=== PATIENT | female | born 1940 | race Caucasian/White ===

== ENCOUNTER → 2017-07-03 14:55 | Outpatient (CLI) | payer MEDICARE, SELFPAY ==
--- NOTE | 2017-07-03 15:02 | DI.RAD.S_ITS ---
PROCEDURE: XR KNEE RT 3V INDICATIONS: right knee pain TECHNIQUE: 3 views of the knee were acquired. COMPARISON: None. FINDINGS: Bones: No fractures or dislocations. No suspicious bony lesions. There is mild to moderate tricompartmental knee joint degeneration, most pronounced at the patellofemoral joint. Soft tissues: Trace joint effusion. No suspicious soft tissue calcifications. IMPRESSION: Mild to moderate degenerative joint disease. Dictated by: Kam Sanders M.D. on 07/03/2017 at 17:59 Approved by: Kam Sanders M.D. on 07/03/2017 at 18:00
== END ==
PROVIDERS: PCP Family Medicine; Visit Provider Family Medicine
DX: M17.11 Unilateral primary osteoarthritis, right knee (principal)
CPT/HCPCS: 73562

== ENCOUNTER 2017-07-07 12:24 | Emergency (ER) | payer MEDICARE, SELFPAY ==
[2017-07-07 12:41] VITALS: BP 160/70; PULSE 64; RESP 16; TEMP 35.6; O2SAT 99; BMI 22.6
--- NOTE | 2017-07-07 12:46 | ED_ITS ---
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 She reports that yesterday she was stepping up while she was working in the garden felt a pop in her right knee. She denies any direct trauma to the right knee. She reports she is having difficulty ambulating due to pain in the right knee. She also reports having worsening pain with movement to the right knee. She denies any direct trauma to the right knee. She denies any other concerns or complaints. MD Complaint: extremity pain Related Data Home Medications Medication Instructions Recorded Confirmed CALCIUM/VITAMIN D (CALCIUM + D #0 11/21/10 07/03/17 500MG/125UNITS) [FISH OIL] QDAY #0 11/21/10 07/03/17 folic acid 1 mg PO QDAY #0 11/21/10 07/07/17 Previous Rx's Medication Instructions Recorded irbesartan 300 mg PO QDAY #90 tab 02/18/17 carvedilol [Coreg] 25 mg PO BID #180 tab 06/27/17 Allergies Allergy/AdvReac Type Severity Reaction Status Date / Time No Known Drug Allergies Allergy Verified 07/07/17 12:55 Review of Systems <AMIRAH Cisneros - Last Filed: 07/07/17 21:54> Constitutional Denies chills, Denies fever(s), Denies lethargy and Denies weakness Eyes Denies change in vision, Denies eye discharge, Denies irritation and Denies loss of vision ENT Ears, Nose, Mouth, and Throat: Denies change in voice, Denies neck pain and Denies sore throat Cardiovascular Denies chest pain, Denies irregular heart rhythm, Denies lightheadedness, Denies palpitations, Denies dyspnea, Denies dyspnea on exertion and Denies orthopnea Respiratory Denies cough, Denies dyspnea, Denies dyspnea on exertion and Denies wheezing Gastrointestinal Gastrointestinal: Denies abdominal pain, Denies change in bowel habits, Denies diarrhea, Denies nausea and Denies vomiting Genitourinary Denies hematuria, Denies flank pain, Denies urinary incontinence and Denies urinary urgency Musculoskeletal Denies neck pain Comments: Pain to right knee Integumentary/Breasts Denies pruritus, Denies erythema, Denies rash and Denies wounds Neurologic Denies loss of vision and Denies weakness Endocrine Denies palpitations Allergic/Immunologic Denies wheezing Exam <AMIRAH Cisneros - Last Filed: 07/07/17 21:54> Initial Vital Signs Initial Vital Signs: Vital Signs Temperature 96.1 F L 07/07/17 12:41 Pulse Rate 64 07/07/17 12:41 Respiratory Rate 16 07/07/17 12:41 Blood Pressure 160/70 H 07/07/17 12:41 Pulse Oximetry 99 07/07/17 12:41 Const General: cooperative and well developed Nutritional Appearance: well nourished Orientation: alert, awake, oriented x3 and not confused HENMT Mouth: oral mucosae normal, oropharynx normal and moist mucous membranes Eyes Sclera: sclerae normal Cornea: corneas normal Pupils: PERRL EOM: EOM intact bilaterally Resp Effort & Inspection: normal respiratory effort, able to speak in complete sentences, no respiratory distress and no use of accessory muscles Auscultation: clear to auscultation bilaterally, no rales, no rhonchi and no wheezes Cardio Rate: regular rate Rhythm: regular rhythm Heart Sounds: no click, no gallops, no murmurs and no rubs Skin General: no rashes or lesions noted, No jaundice and No petechiae Neuro General: alert, oriented x3 and gait normal Extrem Other: Right knee with no erythema swelling deformities or ecchymosis. Tenderness on palpation to the popliteal area of the right knee. Negative anterior posterior drawer sign. Negative varus and valgus stress test. Distal sensation is intact. Distal pulses are intact. Full range of motion distally. <Sonya Goode DO - Last Filed: 07/08/17 08:52> Initial Vital Signs Initial Vital Signs: Vital Signs Temperature 96.1 F L 07/07/17 12:41 Pulse Rate 64 07/07/17 12:41 Respiratory Rate 16 07/07/17 12:41 Blood Pressure 160/70 H 07/07/17 12:41 Pulse Oximetry 99 07/07/17 12:41 Course <AMIRAH Cisneros Last Filed: 07/07/17 21:54> Orders Ordered: Discontinued Medications Ibuprofen (Advil) 400 mg PO NOW ONE Stop: 07/07/17 13:26 Last Admin: 07/07/17 13:40 Dose: 400 mg Vital Signs - 8 hr 07/07/17 12:41 Temperature 96.1 F L Pulse Rate 64 Respiratory Rate 16 Blood Pressure 160/70 H Pulse Oximetry 99 <Sonya Goode DO - Last Filed: 07/08/17 08:52> Orders Ordered: Discontinued Medications Ibuprofen (Advil) 400 mg PO NOW ONE Stop: 07/07/17 13:26 Last Admin: 07/07/17 13:40 Dose: 400 mg Vital Signs - 8 hr 07/07/17 12:41 Temperature 96.1 F L Pulse Rate 64 Respiratory Rate 16 Blood Pressure 160/70 H Pulse Oximetry 99 MDM - Extremity (Nontraumatic) <AMIRAH Cisneros - Last Filed: 07/07/17 21:54> Imaging Data R knee: Radiologist's impression: PROCEDURE: XR KNEE RT 3V INDICATIONS: right knee pain TECHNIQUE: 3 views of the knee were acquired. COMPARISON: None. FINDINGS: Bones: No fractures or dislocations. No suspicious bony lesions. There is mild to moderate tricompartmental knee joint degeneration, most pronounced at the patellofemoral joint. Soft tissues: Trace joint effusion. No suspicious soft tissue calcifications. IMPRESSION: Mild to moderate degenerative joint disease. Dictated by: Kam Sanders M.D. on 07/03/2017 at 17:59 Approved by: Kam Sanders M.D. on 07/03/2017 at 18:00 [facility] Narrative Medical decision making narrative: X-ray the right knee was obtained was negative for any acute findings. X-ray does show degenerative changes. Discussed using knee immobilizer for comfort and support patient does not want knee immobilizer. Crutches for nonweightbearing or use wheelchair. Follow up with primary care provider later this week. If continued pain recommend obtain MRI to rule out soft tissue damage. [id number] ibuprofen as needed for any discomfort. For any worsening symptoms return to the emergency room. Discharge Plan Departure Patient Disposition: Home, Self-Care Clinical Impression: Right knee sprain Discharge Date/Time: 07/07/17 13:49 Interventions: ED Discharge Assessment Last Done: 07/07/17 13:48 Instructions: DI for Knee Pain Activity Restrictions/Additional Instructions: X-ray the right knee was obtained was negative for any acute findings. X-ray does show degenerative changes. Crutches for nonweightbearing or use wheelchair. Follow up with primary care provider later this week. If continued pain recommend obtain MRI to rule out soft tissue damage. Over-the- counter ibuprofen as needed for any discomfort. For any worsening symptoms return to the emergency room. Prescriptions: No Action folic acid 0.8 MG tablet 1 mg PO QDAY Qty: 0 RF: 0 CALCIUM/VITAMIN D (CALCIUM + D 500MG/125UNITS) Qty: 0 RF: 0 [FISH OIL] QDAY Qty: 0 RF: 0 irbesartan 300 MG tablet 300 mg PO QDAY Qty: 90 RF: 3 carvedilol [Coreg] 25 mg tablet 25 mg PO BID Qty: 180 RF: 1 Referrals: Hua Biswas MD [Primary Care Provider] - <Sonya Goode DO - Last Filed: 07/08/17 08:52> Cosign ED Attending Cosignature Attestation: I was immediately available in the department for consultation. Documentation has been reviewed. I agree with assessment and plan.
--- NOTE | 2017-07-07 13:02 | DI.RAD.S_ITS ---
PROCEDURE: XR KNEE RT 3V INDICATIONS: pain R knee TECHNIQUE: 3 views of the knee were acquired. COMPARISON: [facility], , XR KNEE RT 3V, 07/03/2017, 14:42. FINDINGS: Bones: No fractures or dislocation. The joint spaces appear preserved. There is minimal osteophytosis. Soft tissues: No joint effusion. No suspicious soft tissue calcifications. IMPRESSION: 1. No acute bony abnormality. Dictated by: Elio Holt M.D. on 07/07/2017 at 13:30 Approved by: Elio Holt M.D. on 07/07/2017 at 13:31
[2017-07-07] MEDS: IBUPROFEN 400 MG TABLET PO (13:40)
== END 2017-07-07 13:49 | disposition home or self-care (01) ==
PROVIDERS: Emergency Provider Nurse Practitioner Family; PCP Family Medicine
DX: S83.91XA Sprain of unspecified site of right knee, initial encounter (principal)
CPT/HCPCS: 73562; 99282; 99283

== ENCOUNTER → 2018-08-07 09:00 | Outpatient (CLI) | payer MEDICARE, SELFPAY ==
[2018-08-07 09:28] LABS: Add Manual Diff / Slide Review NO; Basophils Absolute Auto 0 /uL (0-100); Basophils Percent Auto 0.9 % (0-2); Eosinophils Absolute Auto 100 /uL (0-450); Eosinophils Percent Auto 2.8 % (2-4); Hematocrit 40.3 % (36-46); Hemoglobin 13.8 g/dL (12.0-16.0); Lymphocytes Absolute Auto 1500 /uL (1100-4500); Lymphocytes Percent Auto 29.2 % (25-40); Mean Corpuscular HGB Conc 34.3 % (30-36); Mean Corpuscular Hemoglobin 30.2 PG (26-34); Monocytes Absolute Auto 500 /uL (0-900); Monocytes Percent Auto 9.6 % (3-14); Neutrophils Absolute Auto 2900 /uL (1500-7000); Neutrophils Percent Auto 57.5 % (50-75); Platelet Count 199 X10^3/uL (150-400); Red Blood Cell Count 4.58 X10^6/uL (4.0-5.2); Red Cell Distribution Width 13.1 % (11.6-14.8); White Blood Cell Count 5.1 X10^3/uL (4.5-11.0)
[2018-08-07 09:50] LABS: Alanine Aminotransferase 21 IU/L (9-52); Albumin 4.5 g/dL (3.5-5.0); Albumin Globulin Ratio 1.6 (1.0-2.8); Alkaline Phosphatase 82 U/L (38-126); Aspartate Aminotransferase 24 IU/L (14-36); Bilirubin Total 0.5 mg/dL (0.2-1.3); Blood Urea Nitrogen 15 mg/dL (7-17); Calcium 9.1 mg/dL (8.4-10.2); Carbon Dioxide 29 mmol/L (22-32); Chloride 106 mmol/L (98-107); Cholesterol 211 mg/dL (140-199); Estimated Glomerular Filt Rate > 60.0 mL/min (>60); Globulin 2.9 g/dL (1.7-4.1); Glucose 97 mg/dL (80-110); HDL Cholesterol 48 mg/dL (40-60); HEMOLYSIS < 15 (0-50); LDL Cholesterol Calculated 133 mg/dL (<100); Potassium 3.9 mmol/L (3.4-5.1); Sodium 143 mmol/L (137-145); Total Protein 7.4 g/dL (6.3-8.2); Triglycerides 152 mg/dL (35-150)
[2018-08-07 10:27] LABS: Thyroid Stimulating Hormone 1.58 uIU/mL (0.47-4.68)
== END ==
PROVIDERS: PCP Family Medicine; Visit Provider Family Medicine
DX: E78.5 Hyperlipidemia, unspecified (principal); I10 Essential (primary) hypertension; Z13.29 Encounter for screening for other suspected endocrine disorder
CPT/HCPCS: 36415; 80053; 80061; 84443; 85025

== ENCOUNTER → 2019-07-13 16:34 | Outpatient (CLI) | payer MEDICARE, SELFPAY ==
--- NOTE | 2019-07-13 16:36 | DI.RAD.S_ITS ---
PROCEDURE: XR WRIST LT MIN 3V INDICATIONS: left scaphoid fracute novmber check healing TECHNIQUE: 4 views of the wrist were acquired. COMPARISON: None. FINDINGS: Bones: No fractures or dislocations. No suspicious bony lesions. Scaphoid view: Transverse scaphoid fracture through the mid body, chronicity uncertain, without evidence of avascular necrosis. No additional trauma found. Soft tissues: No suspicious soft tissue calcifications. IMPRESSION: Mid body scaphoid fracture, nondisplaced, without associated avascular necrosis. Chronicity of the injury is uncertain, no comparison plain films through this area are available for review. Near anatomic alignment maintained. Dictated by: Gael Fleming M.D. on 07/14/2019 at 11:43 Approved by: Gael Fleming M.D. on 07/14/2019 at 11:55
== END ==
PROVIDERS: PCP Family Medicine; Referring Provider Family Medicine; Visit Provider Family Medicine
DX: S62.025D Nondisplaced fracture of middle third of navicular [scaphoid] bone of left wrist, subsequent encounter for fracture with routine healing (principal); I10 Essential (primary) hypertension; X58.XXXD Exposure to other specified factors, subsequent encounter
CPT/HCPCS: 73110

== ENCOUNTER → 2019-09-01 11:18 | Outpatient (CLI) | payer MEDICARE, SELFPAY ==
--- NOTE | 2019-09-01 11:21 | DI.RAD.S_ITS ---
PROCEDURE: XR FOOT LT MIN 3V INDICATIONS: foot pain after pain TECHNIQUE: 3 views of the foot were acquired. COMPARISON: None. FINDINGS: Bones: Minimally displaced intra-articular 5th metatarsal base fracture.. No suspicious bony lesions. Calcaneal enthesopathy. Soft tissues: No tibiotalar joint effusion. Achilles tendon appears normal. IMPRESSION: 5th metatarsal base fracture. Dictated by: Jorge Luis Masterson [facility] Interpreted: Bobo Aldridge MD on 09/01/2019 at 15:13 Approved by: Bobo Aldridge M.D. on 09/02/2019 at 12:03
[2019-09-01 12:32] LABS: Add Manual Diff / Slide Review NO; Basophils Absolute Auto 0 /uL (0-100); Basophils Percent Auto 0.8 % (0-2); Eosinophils Absolute Auto 100 /uL (0-450); Eosinophils Percent Auto 2.7 % (2-4); Hematocrit 39.3 % (36-46); Hemoglobin 13.4 g/dL (12.0-16.0); Lymphocytes Absolute Auto 1600 /uL (1100-4500); Lymphocytes Percent Auto 32.4 % (25-40); Mean Corpuscular HGB Conc 34.1 % (30-36); Mean Corpuscular Hemoglobin 29.4 PG (26-34); Mean Corpuscular Volume 86.4 fL (80-100); Monocytes Absolute Auto 500 /uL (0-900); Monocytes Percent Auto 10.8 % (3-14); Neutrophils Absolute Auto 2600 /uL (1500-7000); Neutrophils Percent Auto 53.3 % (50-75); Platelet Count 199 X10^3/uL (150-400); Red Blood Cell Count 4.55 X10^6/uL (4.0-5.2); White Blood Cell Count 4.8 X10^3/uL (4.5-11.0)
[2019-09-01 13:07] LABS: Alanine Aminotransferase 15 IU/L (<35); Albumin 4.6 g/dL (3.5-5.0); Albumin Globulin Ratio 1.9 (1.0-2.8); Alkaline Phosphatase 102 U/L (38-126); Aspartate Aminotransferase 27 IU/L (14-36); BUN Creatinine Ratio 27.1 (6-22); Bilirubin Total 0.6 mg/dL (0.2-1.3); Blood Urea Nitrogen 13 mg/dL (7-17); Calcium 9.9 mg/dL (8.4-10.2); Carbon Dioxide 25 mmol/L (22-32); Chloride 106 mmol/L (98-107); Cholesterol 211 mg/dL (140-199); Estimated Glomerular Filt Rate > 60.0 mL/min (>60); Globulin 2.4 g/dL (1.7-4.1); Glucose 103 mg/dL (80-110); HDL Cholesterol 41 mg/dL (40-60); HEMOLYSIS < 15 (0-50); LDL Cholesterol Calculated 133 mg/dL (<100); Potassium 4.3 mmol/L (3.4-5.1); Sodium 139 mmol/L (137-145); Triglycerides 183 mg/dL (35-150)
[2019-09-01 13:28] LABS: TSH w/ Reflex to FT4 1.75 uIU/mL (0.47-4.68)
== END ==
PROVIDERS: PCP Family Medicine; Referring Provider Family Medicine; Visit Provider Family Medicine
DX: S92.352A Displaced fracture of fifth metatarsal bone, left foot, initial encounter for closed fracture (principal); M79.672 Pain in left foot; I10 Essential (primary) hypertension; I42.9 Cardiomyopathy, unspecified; X58.XXXA Exposure to other specified factors, initial encounter
CPT/HCPCS: 36415; 73630; 80053; 80061; 84443; 85025

== ENCOUNTER → 2019-10-14 10:11 | Outpatient (CLI) | payer MEDICARE, SELFPAY ==
--- NOTE | 2019-10-14 10:15 | DI.RAD.S_ITS ---
PROCEDURE: XR FOOT LT MIN 3V INDICATIONS: fu foot fracture 6 week TECHNIQUE: 3 views of the foot were acquired. COMPARISON: [facility], , XR FOOT LT MIN 3V, 09/01/2019, 11:18. FINDINGS: Bones: Minimally displaced fracture at the base of the 5th metatarsal is redemonstrated. The fracture fragments are slightly more displaced than on the study dated September 01, 2019. No callus yet visualized. Soft tissues: No tibiotalar joint effusion. Achilles tendon appears normal. IMPRESSION: Minimally increased displacement or osteolysis at the 5th metatarsal fracture when compared with the study dated September 01, 2019. No bridging callus yet visualized. Dictated by: Neli Euceda M.D. on 10/14/2019 at 11:03 Approved by: Neli Euceda M.D. on 10/14/2019 at 11:04
== END ==
PROVIDERS: PCP Family Medicine; Referring Provider Family Medicine; Visit Provider Family Medicine
DX: S92.309A Fracture of unspecified metatarsal bone(s), unspecified foot, initial encounter for closed fracture (principal); X58.XXXA Exposure to other specified factors, initial encounter
CPT/HCPCS: 73630